=== PATIENT | male | born 1990 | race African-American/Black ===

== ENCOUNTER 2016-08-26 12:37 | Emergency (ER) | payer OTHER ==
[~2016-08-26] VITALS: Ht 167.6 cm; Wt 74.8 kg
[2016-08-26 12:38] VITALS: BP 160/106
--- NOTE | 2016-08-26 12:51 | Emergency Room Report ---
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 one approximately 4 hours And fluent from dialysis morning as well Patient describes a sore throat as well Pain with swallowing Denies any vomiting or diarrhea Cough and nasal congestion symptoms continue Allergies: Coded Allergies: No Known Allergies (Unverified , 08/26/16) Patient History Past Medical History: see triage record Pertinent Family History: none Reviewed Nursing Documentation: PMH: Agreed, PSxH: Agreed Nursing Documentation-PMH Past Medical History: No Stated History Review of Systems All Other Systems: negative except mentioned in HPI Physical Exam Vital Signs Date Time Temp Pulse Resp B/P Pulse Ox O2 Delivery O2 Flow Rate FiO2 08/26/16 12:32 98.8 122 22 160/106 100 Room Air Sp02 EP Interpretation: reviewed, normal General Appearance: well appearing, no apparent distress Head: normocephalic, atraumatic Eyes: bilateral eye EOMI, bilateral eye PERRL ENT: hearing grossly normal, normal pharynx, TMs + canals normal, uvula midline Neck: full range of motion, supple, no meningismus, no bony tend Respiratory: lungs clear, normal breath sounds, no rhonchi, no respiratory distress, no retraction, no accessory muscle use Cardiovascular #1: normal peripheral pulses, no edema, no gallop, no JVD, no murmur, tachycardia Gastrointestinal: normal bowel sounds, non tender, soft, no mass, no organomegaly, non-distended, no guarding, no hernia, no pulsatile mass, no rebound Genitourinary: no CVA tenderness Musculoskeletal: normal inspection Neurologic: oriented x3, responsive, director television news III-XII nml as tested, motor strength/ tone normal, sensory intact Psychiatric: mood/affect normal Skin: normal color, no rash, warm/dry, palpation normal Lymphatic: normal inspection, no adenopathy Procedures Critical Care Time Critical Care Time 40 minutes for critical findings Multiple re\re evaluations contact with tertiary center not including procedural time Medical Decision Making Diagnostic Impression: Primary Impression: Aortic dissection ER Course Patient is a fairly complex patient with multiple differential to consideration including but not limited to cardiac cardiopulmonary and vascular emergencies Patient is tachycardic and appears uncomfortable CT chest was obtained which does reveal type A aortic dissection Dr momin was paged by [facility] after short discussion he stated that he Was not able to write anything down and therefore would call us back I did recontact the transfer center, and there was no further response Therefore other tertiary hospital was contacted patient is also [facility] capitated At this time [facility] has graciously accepted the patient All attempts are made for rapid transportation Patient remained appropriate in the emergency room blood pressure appropriate And transferred to [facility] for a higher level of care Labs Test 08/26/16 12:45 08/26/16 13:15 White Blood Count 11.9 K/UL (4.8-10.8) Red Blood Count 5.39 M/UL (4.70-6.10) Hemoglobin 16.4 G/DL (14.2-18.0) Hematocrit 49.3 % (42.0-52.0) Mean Corpuscular Volume 91 FL (80-99) Mean Corpuscular Hemoglobin 30.4 PG (27.0-31.0) Mean Corpuscular Hemoglobin Concent 33.3 G/DL (32.0-36.0) Red Cell Distribution Width 11.1 % (11.6-14.8) Platelet Count 236 K/UL (150-450) Mean Platelet Volume 9.6 FL (6.5-10.1) Neutrophils (%) (Auto) 59.0 % (45.0-75.0) Lymphocytes (%) (Auto) 28.1 % (20.0-45.0) Monocytes (%) (Auto) 6.3 % (1.0-10.0) Eosinophils (%) (Auto) 4.7 % (0.0-3.0) Basophils (%) (Auto) 2.0 % (0.0-2.0) Prothrombin Time 11.1 SEC (9.30-11.50) Prothromb Time International Ratio 1.1 (0.9-1.1) Activated Partial Thromboplast Time 25 SEC (23-33) Sodium Level 136 mEQ/L (135-145) Potassium Level 3.3 mEQ/L (3.4-4.9) Chloride Level 90 mEQ/L (98-107) Carbon Dioxide Level 22 mEQ/L (20-30) Anion Gap 24 (5-15) Blood Urea Nitrogen 14 mg/dL (7-23) Creatinine 1.2 mg/dL (0.7-1.2) Estimat Glomerular Filtration Rate > 60 mL/min (>60) Glucose Level 112 mg/dL (74-106) Calcium Level 10.0 mg/dL (8.6-10.2) Total Bilirubin 0.6 mg/dL (0.0-1.2) Aspartate Amino Transf (AST/SGOT) 25 U/L (5-40) Alanine Aminotransferase (ALT/SGPT) 21 U/L (3-41) Alkaline Phosphatase 80 U/L (40-129) Total Creatine Kinase 213 U/L (38-174) Creatine Kinase MB 2.3 ng/mL (< 6.7) Creatine Kinase MB Relative Index 1.0 Troponin I < 0.30 ng/mL (<=0.30) Total Protein 7.9 g/dL (6.6-8.7) Albumin 4.9 g/dL (3.5-5.2) Globulin 3.0 g/dL Albumin/Globulin Ratio 1.6 (1.0-2.7) Lipase 44 U/L (< 60) Urine Opiates Screen Negative (NEGATIVE) Urine Barbiturates Screen Negative (NEGATIVE) Phencyclidine (PCP) Screen Negative (NEGATIVE) Urine Amphetamines Screen Negative (NEGATIVE) Urine Benzodiazepines Screen Negative (NEGATIVE) Urine Cocaine Screen Negative (NEGATIVE) Urine Marijuana (THC) Screen Positive (NEGATIVE) EKG Diagnostic Results Rate: tachycardiac Rhythm: NSR ST Segments: other - Nonspecific ST and T-wave changes Rhythm Strip Diag. Results EP Interpretation: yes Rate: 114 Rhythm: no PVC's, no ectopy, other - Sinus tach Chest X-Ray Diagnostic Results EP Interpretation: Yes Findings: no consolidation, no effusion, no pneumothorax Number of Views: 1 CT/MRI/US Diagnostic Results CT/MRI/US Diagnostic Results : Impression CT chest: Evans type A aortic dissection involving the root of the aorta terminates in the aortic arch does not appear to involve aortic knob vessels Last Vital Signs Date Time Temp Pulse Resp B/P Pulse Ox O2 Delivery O2 Flow Rate FiO2 08/26/16 12:32 98.8 122 22 160/106 100 Room Air Status: unchanged Disposition: XFER [facility] Condition: Critical MOHAMUD ESCOBEDO D.O. Aug 26, 2016 12:51
[2016-08-26 13:11] VITALS: BP 157/97
[2016-08-26] MEDS ORDERED: LORazepam Inj 2mg/ml 1ml IV ONE (13:15)
[2016-08-26 13:19] LABS: EOSINOPHILS % (AUTO) 4.7 % (0.0-3.0); LYMPHOCYTES % (AUTO) 28.1 % (20.0-45.0); MEAN CORPUSCULAR HEMOGLOBIN 30.4 PG (27.0-31.0); MEAN CORPUSCULAR HGB CONC 33.3 G/DL (32.0-36.0); MEAN CORPUSCULAR VOLUME 91 FL (80-99); MEAN PLATELET VOLUME 9.6 FL (6.5-10.1); MONOCYTES % (AUTO) 6.3 % (1.0-10.0); PLATELET COUNT 236 K/UL (150-450); RED BLOOD COUNT 5.39 M/UL (4.70-6.10); RED CELL DISTRIBUTION WIDTH 11.1 % (11.6-14.8); WHITE BLOOD COUNT 11.9 K/UL (4.8-10.8)
[2016-08-26 13:27] LABS: INR 1.1 (0.9-1.1); PROTHROMBIN TIME 11.1 SEC (9.30-11.50)
[2016-08-26 13:33] LABS: ALANINE AMINOTRANSFERASE 21 U/L (3-41); ALBUMIN/GLOBULIN RATIO 1.6 (1.0-2.7); ANION GAP 24 (5-15); ASPARTATE AMINO TRANSFERASE 25 U/L (5-40); CARBON DIOXIDE 22 mEQ/L (20-30); CHLORIDE 90 mEQ/L (98-107); CREATININE 1.2 mg/dL (0.7-1.2); GLOMERULAR FILTRATION RATE > 60 mL/min (>60); HEMOLYSIS 16; LIPASE 44 U/L (< 60); POTASSIUM 3.3 mEQ/L (3.4-4.9); SODIUM 136 mEQ/L (135-145); TOTAL PROTEIN 7.9 g/dL (6.6-8.7); TROPONIN I < 0.30 ng/mL (<=0.30)
[2016-08-26 13:43] LABS: CKMB 2.3 ng/mL (< 6.7)
[2016-08-26] MEDS ORDERED: Morphine Sulfate 4mg/ml Inj IVP ONE (15:00)
[2016-08-26 15:21] VITALS: BP 114/63
[2016-08-26 17:12] VITALS: BP 123/87
[2016-08-26 18:54] VITALS: BP 116/82
[2016-08-26 19:45] VITALS: BP 121/84
--- NOTE | 2016-08-27 08:21 | Diagnostic Imaging Report ---
Clinical history: Shortness of breath. Technique: Portable AP chest radiograph was obtained. Comparison: None Findings: The lungs are well inflated and clear. There is no pneumonia or pulmonary edema. There is no pleural effusion or pneumothorax. The cardiac and mediastinal silhouettes are normal in appearance. The bony thorax is unremarkable. Impression: No acute cardiopulmonary process.
--- NOTE | 2016-08-27 08:46 | Diagnostic Imaging Report ---
EXAM: CT Chest HISTORY: Acute chest pain. TECHNIQUE: Serial 3.0 mm axial images were obtained from the thoracic inlet through the adrenals following the start of the administration of intravenous contrast. Coronal and sagittal reformats were performed. COMPARISON: No prior study is available for comparison. FINDINGS: Apparent linear hypodensity involving the medial descending aorta extending into the mid aortic arch is suspicious for an acute dissection flap. Similar-appearing linear hypodensity is noted in the SVC extending into the confluence of the SVC with the left brachiocephalic vein. Motion artifact is a differential consideration. Increased attenuation of the retrosternal fat may represent residual thyroid. Mediastinal hematoma is a differential consideration. The lungs appear clear. No pleural effusion is seen. The airway appears patent. The heart is not enlarged. There is no evidence of pericardial effusion. There is no evidence of mediastinal, hilar or axillary adenopathy. The thyroid appears unremarkable. Visualized upper abdominal organs appear grossly normal. The visualized bony structures appear intact. IMPRESSION: 1. Suspected type A dissection involving the ascending aorta, as described. 2. Similar-appearing linear hypodensity in the SVC. Motion artifact is a differential consideration. 3. Increased attenuation of the retrosternal fat may represent residual thyroid. Mediastinal hematoma is a differential consideration. Findings were again discussed with the emergency room physician at 8:40 AM on 06/26/[address] Cartagena.
--- NOTE | 2016-08-27 21:14 | Cardiology Report ---
APPROVED REPORT EKG Measurement Heart [id number] ID [id number] Sinus tachycardia Possible Left atrial enlargement Rightward axis Incomplete right bundle branch block T wave abnormality, consider inferior ischemia Abnormal ECG
== END 2016-08-26 19:45 | disposition short-term general hospital (02) ==
LOC: EDBD 12:37 → EMR 13:05
DX: I71.01 Dissection of thoracic aorta (principal); R00.0 Tachycardia, unspecified
CPT/HCPCS: 36415; 71010; 71275; 80053; 80300; 82550; 82553; 83690; 84484; 85025; 85610; 85730; 93005; 96360; 96361; 96374; 96375; 99291; J2270; J2405; J7040; Q9967